=== PATIENT | male | born 1995 | race Caucasian/White ===

== ENCOUNTER → 2017-09-24 | Day surgery (SDC) | payer BC ==
[2017-09-22 12:47] VITALS: Ht 175.3 cm; Wt 79.5 kg
[~2017-09-24] VITALS: Ht 175.3 cm; Wt 79.5 kg
[~2017-09-24] MED LIST: ALBU18002 INH; ALPR-411 PO; ESCI10TA17 PO; LIDOCAINE HCL 2% 2 ML VIAL (20MG/ML) ONE; PANT40TA PO; PROPOFOL IV EMULSION 10 MG/ML 20 ML VIAL IV ONE; SODIUM CHLORIDE 0.9% 500ML 500 ML IV ONE
[2017-09-24 10:27] VITALS: TEMP 36.5
--- NOTE | 2017-09-24 11:38 | Endo History and Physical ---
History & Physical Date of Service: Sep 24, 2017. Chief Complaint: HEARTBURN Referring Physician: Case History of Present Illness 22 yo CM who presents for EGD secondary to Heartburn. Past Surgical History Hx Cardiac Surgery: No Hx Internal Defibrillator: No Hx Pacemaker: No Hx Abdominal Surgery: No Hx of Implantable Prosthesis: No Hx Post-Op Nausea and Vomiting: No Hx Cancer Surgery: No Hx Thoracic Surgery: No Hx Orthopedic: No Hx Urinary Tract Surgery: No Family History None Social History Smoking Status: Never Smoker Hx Substance Use: No ("NOT CURRENTLY") Hx Alcohol Use: Yes (OCCASIONALLY) Allergies Coded Allergies: NO KNOWN DRUG ALLERGIES (Verified Allergy, Unknown, ., 09/22/17) Current Medications Reported Home Medications Medications Dose Route/Sig Max Daily Dose Days Date Category Proair Respiclick (Albuterol Sulfate) 108 Mcg/Act Aer 2 Puff INH QID PRN 09/22/17 Reported Protonix (Pantoprazole Sodium) 40 Mg Tab 40 Mg PO QAM 09/22/17 Reported Xanax (Alprazolam) 0.5 Mg Tab 0.5 Mg PO Q6H PRN 09/22/17 Reported Lexapro (Escitalopram Oxalate) 10 Mg Tab 10 Mg PO QAM 09/22/17 Reported Vital Signs Weight (Kilograms): 79.55 Height (Feet): 5 Height (Inches): 9 Date Time Temp Pulse Resp B/P (MAP) Pulse Ox O2 Delivery O2 Flow Rate FiO2 09/24/17 10:27 36.5 57 18 156/84 (108) 98 Room Air Physical Exam General Appearance: WD/WN, no apparent distress Respiratory/Chest: Auscultation: breath sounds normal Cardiovascular: Heart Auscultation: RRR Abdomen: Bowel Sounds: normal Inspection & Palpation: soft, non-distended, no tenderness, guarding & rebound Assessment and Plan Assessment: 22 yo CM who presents for EGD secondary to Heartburn. Plan: Proceed with EGD
--- NOTE | 2017-09-24 12:01 | Discharge Instructions ---
Endoscopy Patient Instructions Date / Procedure(s) Performed Sep 24, 2017. EGD Allergy Information Coded Allergies: NO KNOWN DRUG ALLERGIES (Verified Allergy, Unknown, ., 09/22/17) Discharge Date / Findings Sep 24, 2017. Gastritis s/p biopsies Medication Instructions OK to resume all medications today as prescribed Reported Home Medications Medications Dose Route/Sig Max Daily Dose Days Date Category Proair Respiclick (Albuterol Sulfate) 108 Mcg/Act Aer 2 Puff INH QID PRN 09/22/17 Reported Protonix (Pantoprazole Sodium) 40 Mg Tab 40 Mg PO QAM 09/22/17 Reported Xanax (Alprazolam) 0.5 Mg Tab 0.5 Mg PO Q6H PRN 09/22/17 Reported Lexapro (Escitalopram Oxalate) 10 Mg Tab 10 Mg PO QAM 09/22/17 Reported Provider Instructions Activity Restrictions - No exercising or heavy lifting for 24 hours. - Do not drink alcohol the day of the procedure. - Do not drive a car or operate machinery until the day after the procedure. - Do not make any important decisions or sign important papers in 24 hours after the procedure. Following Day: - Return to full activity which may include returning to work/school. Diet Start your diet with liquids and light foods (jello, soup, juice, toast). Then eat your usual diet if not nauseated. Treatment For Common After Affects For mild abdominal pain, bloating, or excessive gas: - Rest - Eat lightly - Lie on right side Follow-Up Information Follow-up with as scheduled Anesthesia Information What You Should Know You have had a procedure that required some medicine to reduce anxiety and discomfort. This treatment is called moderate sedation. After receiving the treatment, you may be sleepy, but you will be able to breathe on your own. The effects of the treatment may last for several hours. Follow these instructions along with Activity/Diet recommendations noted above: * Do NOT do anything where dizziness or clumsiness would be dangerous. * Rest quietly at home today, then you can be up and about tomorrow. * Have a responsible person stay with you the rest of today. * You may have had an I.V. today. If so, you may take the dressing off later today. Recommendations Call your doctor if: * Trouble breathing * Continuous vomiting for more than 24 hours * Temperature above 101 degrees * Severe abdominal pain or bloating * Pain not relieved by pain medicine ordered * There is increased drainage or redness from any incision * A large amount of rectal bleeding greater than 2-3 tablespoons. (If you had a polyp/s removed or have hemorrhoids, a small amount of blood - from the rectum is to be expected.) * You have any unanswered questions or concerns. IN THE EVENT OF A SERIOUS EMERGENCY, GO TO THE NEAREST EMERGENCY ROOM Your discharge instructions were prepared by provider Ramakrishna Anna. Patient Instructions Signature Page Connor Wright Patient (or Guardian) Signature/Date: I have read and understand the instructions given to me by my caregivers. Caregiver/RN/Doctor Signature/Date: The above-named patient and/or guardian has received patient instructions on this date. + Original Patient Signature Page (only) stays with chart. Please make copy for patient.
--- NOTE | 2017-09-24 12:04 | GI REPORT ---
Procedure Date: 09/24/2017 11:29 AM Procedure: Upper GI endoscopy Indications: Heartburn Medicines: Monitored Anesthesia Care Complications: No immediate complications. Estimated Blood Loss: Estimated blood loss: none. Procedure: Pre-Anesthesia Assessment: - Prior to the procedure, a History and Physical was performed, and patient medications and allergies were reviewed. The patient's tolerance of previous anesthesia was also reviewed. The risks and benefits of the procedure and the sedation options and risks were discussed with the patient. All questions were answered, and informed consent was obtained. Prior Anticoagulants: The patient has taken no previous anticoagulant or antiplatelet agents. ASA Grade Assessment: II - A patient with mild systemic disease. After reviewing the risks and benefits, the patient was deemed in satisfactory condition to undergo the procedure. After obtaining informed consent, the endoscope was passed under direct vision. Throughout the procedure, the patient's blood pressure, pulse, and oxygen saturations were monitored continuously. The scope was introduced through the mouth, and advanced to the second part of duodenum. The upper GI endoscopy was accomplished without difficulty. The patient tolerated the procedure well. Findings: The esophagus was normal. Localized mild inflammation was found in the gastric antrum. Biopsies were taken with a cold forceps for histology. The examined duodenum was normal. Impression: - Normal esophagus. - Gastritis. Biopsied. - Normal examined duodenum. Recommendation: - Resume previous diet. - Continue present medications. - Await pathology results. - Return to primary care physician as previously scheduled. Ramakrishna Anna DO 09/24/2017 12:03:35 PM This report has been signed electronically. Note Initiated On: 09/24/2017 11:29 AM I attest to the content of the Intraoperative Record and orders documented therein, exceptions below
[2017-09-24 12:24] VITALS: BP 135/90; PULSE 49; O2SAT 99
--- NOTE | 2017-09-24 13:26 | Anesthesiology Progress Note ---
Anesthesia Post Op Note Date & Time Sep 24, 2017 at 13:25 Vital Signs Pain Intensity: 0 Vital Signs Past 12 Hours Date Time Temp Pulse Resp B/P (MAP) Pulse Ox O2 Delivery O2 Flow Rate FiO2 09/24/17 12:24 49 18 135/90 (105) 99 Room Air 09/24/17 12:09 60 18 134/79 (97) 97 Room Air 09/24/17 11:54 51 16 145/97 (113) 98 Room Air 09/24/17 10:27 36.5 57 18 156/84 (108) 98 Room Air Notes Mental Status: alert / awake / arousable, participated in evaluation Pt Amnestic to Procedure: Yes Nausea / Vomiting: adequately controlled Pain: adequately controlled Airway Patency, RR, SpO2: stable & adequate BP & HR: stable & adequate Hydration State: stable & adequate Anesthetic Complications: no major complications apparent
== END | disposition home or self-care (01) ==
LOC: C.GI 10:06
PROVIDERS: ATTEND Internal Medicine
DX: K29.50 Unspecified chronic gastritis without bleeding (principal); K21.9 Gastro-esophageal reflux disease without esophagitis; Z79.899 Other long term (current) drug therapy

== ENCOUNTER 2017-10-14 22:00 | Emergency (ER) | payer BC ==
[~2017-10-14] VITALS: Ht 175.3 cm; Wt 82.3 kg
[~2017-10-14 22:00] MED LIST changes: -LIDOCAINE HCL 2% 2 ML VIAL (20MG/ML) ONE; -PROPOFOL IV EMULSION 10 MG/ML 20 ML VIAL IV ONE; -SODIUM CHLORIDE 0.9% 500ML 500 ML IV ONE
[2017-10-14 22:03] VITALS: TEMP 36.2; Ht 175.3 cm; Wt 82.3 kg
[2017-10-14] MEDS ORDERED: LORAZEPAM 2 MG/ML 1 ML VIAL IV STA (22:16)
[2017-10-14 22:31] LABS: BASO % 0.1 %; BASO ABS # 0.01 K/uL (0-0.2); COMPLETE YES; EOS % 1.8 %; HEMATOCRIT 42.7 % (42-52); IG% 0.1 %; LYMPH % 39.6 %; LYMPH ABS # 2.88 K/uL (1.2-3.4); MEAN CELL VOLUME 87.5 fL (80-100); MEAN CORPUSCULAR HEMOGLOBIN 30.9 pg (25-34); MEAN CORPUSCULAR HGB CONC 35.4 g/dl (32-36); MEAN PLATELET VOLUME 9.9 fL (7.4-10.4); MONO % 6.2 %; NEUT % 52.2 %; PLATELET COUNT 157 K/uL (130-400); RED BLOOD COUNT 4.88 M/uL (4.7-6.1); WHITE BLOOD COUNT 7.28 K/uL (4.8-10.8)
--- NOTE | 2017-10-14 22:51 | DIAGNOSTIC IMAGING REPORT ---
CHEST ONE VIEW PORTABLE HISTORY: Atypical CHEST PAIN COMPARISON: None. FINDINGS: The lungs are clear. Cardiac silhouette is normal in size. No pleural effusions. No pneumothorax. IMPRESSION: No acute process. Electronically signed by: Jeremy Joiner M.D. 10/14/2017 10:50 PM Dictated Date/Time: 10/14/2017 10:48 PM
[2017-10-14] MEDS ORDERED: OPTIRAY 320 IV PRN (23:00)
[2017-10-14 23:02] LABS: ALKALINE PHOSPHATASE 82 U/L (45-117); ALT/SGPT 34 U/L (12-78); AST/SGOT 27 U/L (15-37); BLOOD UREA NITROGEN 23 mg/dl (7-18); BUN/CREATININE RATIO 16.3 (10-20); CALCIUM 9.1 mg/dl (8.5-10.1); CARBON DIOXIDE 27 mmol/L (21-32); CHLORIDE 103 mmol/L (98-107); CREATININE 1.39 mg/dl (0.60-1.40); GLUCOSE 96 mg/dl (70-99); POTASSIUM 3.5 mmol/L (3.5-5.1); SODIUM 140 mmol/L (136-145)
--- NOTE | 2017-10-14 23:31 | EMERGENCY ROOM VISIT NOTE ---
History First contact with patient: 22:06 Chief Complaint: CHEST PAIN Stated Complaint: CHEST AND ARM PAIN - COLD SWEATS Nursing Triage Summary: Chest pain starting an hour ago while watching TV. Was at the gym an hour prior to that. History of Present Illness The patient is a 22 year old male who presents to the Emergency Room with complaints of intermittent chest pain for the past 2 years that increased tonight about an hour ago. Patient states he felt somewhat short of breath and sweaty with this. Pain has almost resolved. Currently 2 out of 10. Nothing makes it better or worse. Does not radiate. Patient had echo and EKG 4 months ago to home that was normal per patient at the [facility]. He had an EGD last month that was also showing only mild gastritis by Dr. romano. Patient denies family history of heart disease or blood clots. No recent travel. He does not smoke. Patient denies IV drug abuse, back pain, fever, chills, cough, congestion, injury to the area, abdominal pain, leg pain or swelling, palpitations, excessive alcohol use, supplement use. No excessive caffeine use. Patient denies prior history of anxiety or depression. Patient states the family care doctor tried him on Lexapro but he stopped this. Review of Systems See HPI for pertinent positives & negatives. A total of 10 systems reviewed and were otherwise negative. Past Medical/Surgical History None Social History Smoking Status: Never Smoker Smokeless Tobacco Use: No Alcohol Use: occasionally Drug Use: none Occupation Status: [employer] student Current/Historical Medications Scheduled Pantoprazole (Protonix), 40 MG PO QAM Scheduled PRN Albuterol Sulfate (Proair Respiclick), 2 PUFF INH QID PRN for Shortness of Breath Alprazolam (Xanax), 0.5 MG PO Q6H PRN for Anxiety Physical Exam Vital Signs Date Time Temp Pulse Resp B/P (MAP) Pulse Ox O2 Delivery O2 Flow Rate FiO2 10/14/17 23:19 61 16 143/79 97 Room Air 10/14/17 22:45 57 14 98 10/14/17 22:30 67 21 149/83 97 Room Air 10/14/17 22:25 57 10/14/17 22:20 Room Air 10/14/17 22:20 Room Air 10/14/17 22:18 157/92 10/14/17 22:03 36.2 87 20 184/110 100 Physical Exam VITALS: Vitals are noted on the nurse's note and reviewed by myself. Vital signs hypertensive GENERAL: Pleasant anxious-appearing male, in no acute distress, nondiaphoretic, well-developed well-nourished. SKIN: The skin was without rashes, erythema, edema, or bruising. There is no tenting of the skin. Capillary reflex less than 2 seconds. HEAD: Normocephalic atraumatic. EARS: External auditory canals clear, tympanic membranes pearly allen without erythema or effusion bilaterally. EYES: Pupils equal round and reactive to light and accommodation. Conjunctivae without injection, sclerae without icterus. Extraocular movements intact. NOSE: Patent, turbinates without inflammation or discharge. MOUTH: Mucous membranes moist. Pharynx without erythema or exudate. Uvula midline. Airway patent. Tongue does not deviate. NECK: Supple without nuchal rigidity. No lymphadenopathy. No thyromegaly. Cervical spine is nontender. No JVD. HEART: Regular rate and rhythm without murmurs gallops or rubs. Chest nontender to palpation LUNGS: Clear to auscultation bilaterally without wheezes, rales or rhonchi. No dullness to percussion. No retractions or accessory muscle use. ABDOMEN: Positive bowel sounds x 4. Normal tympanic percussion. Soft, nontender, without masses or organomegaly. Baxter sign negative. No guarding or rebound tenderness. MUSCULOSKELETAL: No muscle atrophy, erythema, or edema noted. NEURO: Patient was alert and oriented to person place and time. Normal sensation to light and sharp touch. No focal neurological deficits. Medical Decision & Procedures Laboratory Results 10/14/17 22:16 Red Blood Count 4.88, Mean Corpuscular Volume 87.5, Mean Corpuscular Hemoglobin 30.9, Mean Corpuscular Hemoglobin Concent 35.4, Mean Platelet Volume 9.9, Neutrophils (%) (Auto) 52.2, Lymphocytes (%) (Auto) 39.6, Monocytes (%) (Auto) 6.2, Eosinophils (%) (Auto) 1.8, Basophils (%) (Auto) 0.1, Neutrophils # (Auto) 3.80, Lymphocytes # (Auto) 2.88, Monocytes # (Auto) 0.45, Eosinophils # (Auto) 0.13, Basophils # (Auto) 0.01 10/14/17 22:16 Test 10/14/17 22:16 10/14/17 22:17 White Blood Count 7.28 K/uL (4.8-10.8) Red Blood Count 4.88 M/uL (4.7-6.1) Hemoglobin 15.1 g/dL (14.0-18.0) Hematocrit 42.7 % (42-52) Mean Corpuscular Volume 87.5 fL (80-100) Mean Corpuscular Hemoglobin 30.9 pg (25-34) Mean Corpuscular Hemoglobin Concent 35.4 g/dl (32-36) Platelet Count 157 K/uL (130-400) Mean Platelet Volume 9.9 fL (7.4-10.4) Neutrophils (%) (Auto) 52.2 % Lymphocytes (%) (Auto) 39.6 % Monocytes (%) (Auto) 6.2 % Eosinophils (%) (Auto) 1.8 % Basophils (%) (Auto) 0.1 % Neutrophils # (Auto) 3.80 K/uL (1.4-6.5) Lymphocytes # (Auto) 2.88 K/uL (1.2-3.4) Monocytes # (Auto) 0.45 K/uL (0.11-0.59) Eosinophils # (Auto) 0.13 K/uL (0-0.5) Basophils # (Auto) 0.01 K/uL (0-0.2) RDW Standard Deviation 39.0 fL (36.4-46.3) RDW Coefficient of Variation 12.2 % (11.5-14.5) Immature Granulocyte % (Auto) 0.1 % Immature Granulocyte # (Auto) 0.01 K/uL (0.00-0.02) Anion Gap 10.0 mmol/L (3-11) Est Creatinine Clear Calc Drug Dose 84.1 ml/min Estimated GFR () 83.4 Estimated GFR (Non- 71.9 BUN/Creatinine Ratio 16.3 (10-20) Calcium Level 9.1 mg/dl (8.5-10.1) Total Bilirubin 0.4 mg/dl (0.2-1) Direct Bilirubin mg/dl (0-0.2) Aspartate Amino Transf (AST/SGOT) 27 U/L (15-37) Alanine Aminotransferase (ALT/SGPT) 34 U/L (12-78) Alkaline Phosphatase 82 U/L (45-117) Total Protein 8.3 gm/dl (6.4-8.2) Albumin 4.5 gm/dl (3.4-5.0) Lipase 251 U/L (73-393) Chemistry Specimen Hemolysis Bedside D-Dimer > 450 ng/mlFEU (0-450) Bedside Troponin I 0.030 ng/ml (0-0.045) Medications Administered Medications (Trade) Dose Ordered Sig/[place] Route Start Time Stop Time Status Last Admin Dose Admin Lorazepam (Ativan Inj) 1 mg NOW STAT IV 10/14/17 22:16 10/14/17 22:17 DC 10/14/17 22:43 1 MG ED Course Prior records/ancillary studies reviewed. Triage Nursing notes reviewed. The patient's history was concerning for chest pain. Differential diagnosis: Etiologies such as cardiac ischemia, aortic dissection, pulmonary embolism, pneumonia, pneumothorax, musculoskeletal, infections, pericarditis, myocarditis , esophageal rupture, gastrointestinal, as well as others were entertained. Physical examination: As above. ER treatment provided: Ativan On reassessment the patient felt better. Diagnostic interpretation by me: The electrocardiogram was negative for pathologic change. Normal sinus, normal intervals, no acute ST-T wave changes, rate of 82. Impression normal sinus rhythm interpreted by myself The labs revealed elevated d-dimer. Negative troponin Imaging studies: Chest x-ray with no acute consolidation, pneumothorax or free air per my interpretation CTA negative for PE per radiology Exam and history seem consistent with noncardiac chest pain. Patient had a echo a few months ago that was unremarkable per patient back,. He had EGD that showed mild gastritis last month. Patient had a negative troponin. Normal EKG. He felt better after the Ativan. He was asked to rest, decrease stress and to follow-up with health services in a few days or here in the ER sooner for chest pain, difficulty breathing, worsening signs or symptoms or as needed. By the evaluation outlined above emergent etiologies such as cardiac ischemia, aortic dissection, pulmonary embolism, pneumonia, pneumothorax, infections, pericarditis, myocarditis, gastrointestinal, as well as others were deemed relatively unlikely. The pt informed about the findings as listed above. All questions were answered and pleased with the treatment. Return instructions were outlined and the patient was discharged in stable condition. Referral: The patient was referred back to health services / primary care physician for follow-up in 2 to 3 days for a recheck of the current condition. Case reviewed with my attending Medical Decision As above Medication Reconcilliation Current Medication List: was personally reviewed by me Blood Pressure Screening Patient's blood pressure: Elevated blood pressure Blood pressure disposition: Elevated BP felt to be situational Impression Primary Impression: Non-cardiac chest pain Departure Information Dispostion Home / Self-Care Condition GOOD Referrals No Doctor, Assigned (PCP) Patient Instructions My [facility] Additional Instructions DO NOT drive, drink alcohol, operate machinery, or perform dangerous activities today. You were given medications in the ER that can affect your ability to safely function or operate a vehicle. Ibuprofen(Motrin, Advil) may be used for fever or pain. Use 600mg every six hours as needed. Take with food. Avoid using more than 2400mg in a 24 hour period. Do not use 2400mg per day for more than three consecutive days without physician direction. Prolonged inappropriate use can lead to stomach upset or ulcers. (AND/OR) Acetaminophen(Tylenol) may be used for fever or pain. Use 1000mg every six hours as needed. Avoid using more than 3000mg in a 24 hour period. Rest and drink plenty of fluids as tolerated. Continue current medications. Avoid strenuous activities and anything that worsens your pain. Resume normal activities once your symptoms resolve. Return to the ER immediately for worsening or persistent chest pain, abdominal pain, vomiting, fevers, chest pains, difficulty breathing, worsening of your condition, or as needed. Follow up with your primary physician./Health services in 2-3 days for a recheck of your current condition.
[2017-10-14 23:41] VITALS: BP 140/80; PULSE 62; O2SAT 97
--- NOTE | 2017-10-15 06:52 | DIAGNOSTIC IMAGING REPORT ---
(CHEST FOR PE) ANGIO WITH CT DOSE: 328.27 mGy.cm HISTORY: Chest pain dyspnea TECHNIQUE: Multiaxial CT images of the chest were performed following the intravenous administration of contrast to evaluate the pulmonary arteries. Maximal intensity projection images were also obtained. A dose lowering technique was utilized adhering to the principles of ALARA. COMPARISON STUDY: None. FINDINGS: There is a normal caliber thoracic aorta with no evidence for dissection. There is no evidence for pulmonary embolus. No pleural effusions. No pneumothorax. The liver and spleen are unremarkable. No mediastinal or hilar lymphadenopathy. The central airways are patent. The lungs are clear. IMPRESSION: No evidence for pulmonary embolus. Lungs are clear. The above report was generated using voice recognition software. It may contain grammatical, syntax or spelling errors. Electronically signed by: Odilon Card M.D. 10/15/2017 6:51 AM Dictated Date/Time: 10/15/2017 6:50 AM
== END 2017-10-14 23:59 | disposition home or self-care (01) ==
LOC: C.EDB 22:01
DX: R07.89 Other chest pain (principal)

== ENCOUNTER 2017-11-12 10:33 | Emergency (ER) | payer BC ==
[~2017-11-12] VITALS: Ht 175.3 cm; Wt 78.6 kg
[~2017-11-12 10:33] MED LIST changes: -ESCI10TA17 PO
[2017-11-12 10:35] VITALS: TEMP 36.4; Ht 175.3 cm; Wt 78.6 kg
[2017-11-12] MEDS ORDERED: PANT40TA PO (11:02)
[2017-11-12] MEDS ORDERED: CRFL PO (11:02)
[2017-11-12] MEDS ORDERED: ALPR-411 PO (11:02)
[2017-11-12] MEDS ORDERED: ESCI10TA17 PO (11:02)
[2017-11-12] MEDS ORDERED: LIDOCAINE HCL 2% VISC SOLN 20 ML UDC PO STA (11:52)
[2017-11-12] MEDS ORDERED: LORAZEPAM 1 MG TAB SL STA (11:52)
[2017-11-12] MEDS ORDERED: ALUMINUM/MAGNESIUM SUSP 30 ML UDC PO STA (11:52)
[2017-11-12 12:39] VITALS: BP 144/84; PULSE 72; O2SAT 100
--- NOTE | 2017-11-12 17:18 | EMERGENCY ROOM VISIT NOTE ---
History Report prepared by Shadia: Faith Berry Under the Supervision of: Dr. Luther Cr M.D. First contact with patient: 11:45 Chief Complaint: ANXIETY Stated Complaint: PANIC, CHEST PAIN History of Present Illness The patient is a 22 year old male who presents to the Emergency Room with complaints of persistent anxiety that began this morning. The patient states that this morning when he woke up, he had a panic attack. The patient states that during his episode he had chest tightness and was out of breath. He is no longer short of breath, but is not back to his normal state. He still complains of some chest tightness. This chest tightness is identical to his previous panic attacks. He has had a workup by facility sales and admin for these symptoms. He notes that he takes Lexapro and Xanax for his anxiety. The patient denies any fever or recent illness. He notes that he is having some abdominal pain, secondary to his gastritis. The patient denies any suicidal thoughts. He does state that he did not take any Xanax this morning. He stated that he felt like he had to get out of the house. Source of History: patient Onset: this morning Position: other (global) Symptom Intensity: severe Quality: other (anxiety) Timing: other (persistent) Associated Symptoms: + abdominal pain (gastritis), No fevers Review of Systems See HPI for pertinent positives & negatives. A total of 10 systems reviewed and were otherwise negative. Past Medical & Surgical Medical Problems: (1) Anxiety (2) Gastritis Family History Anxiety disorder Social History Smoking Status: Never Smoker Alcohol Use: occasionally Drug Use: none Occupation Status: [employer] Current/Historical Medications Scheduled Escitalopram (Lexapro), 10 MG PO DAILY Pantoprazole (Protonix), 40 MG PO DAILY Sucralfate (Carafate), 10 ML PO QID Scheduled PRN Alprazolam (Xanax), 0.5 MG PO Q6H PRN for Anxiety Allergies Coded Allergies: NO KNOWN DRUG ALLERGIES (Verified Allergy, Unknown, ., 11/12/17) Physical Exam Vital Signs Date Time Temp Pulse Resp B/P (MAP) Pulse Ox O2 Delivery O2 Flow Rate FiO2 11/12/17 12:39 72 144/84 100 11/12/17 10:35 36.4 98 28 153/80 100 Room Air Physical Exam Constitutional: Vital signs reviewed. Eyes: Pupils are equal round reactive to light. Conjunctiva are noninjected. ENT: Pharynx is clear without erythema or exudate. Mucous membranes are moist. Neck supple without meningeal signs. Respiratory: Clear to auscultation bilaterally. Breath sounds are equal bilaterally. Cardiovascular: Regular rate and rhythm. No rubs or gallops. GI: Soft, nondistended and nontender. Bowel sounds are present. Musculoskeletal: No peripheral edema. Integumentary: No cyanosis. Neurological: The patient is awake and alert. No focal deficits. Psychiatric: Anxious. Medical Decision & Procedures Medications Administered Medications (Trade) Dose Ordered Sig/[place] Route Start Time Stop Time Status Last Admin Dose Admin Lidocaine HCl (Viscous Lidocaine 2% Soln) 10 ml NOW STAT PO 11/12/17 11:52 11/12/17 11:54 DC 11/12/17 12:16 10 ML Al Hydroxide/Mg Hydroxide (Maalox Susp) 30 ml NOW STAT PO 11/12/17 11:52 11/12/17 11:54 DC 11/12/17 12:15 30 ML Lorazepam (Ativan Tab) 1 mg NOW STAT SL 11/12/17 11:52 11/12/17 11:54 DC 11/12/17 12:15 1 MG ECG Indication: chest pain Rate (beats per minute): 62 Rhythm: normal sinus Findings: no acute ischemic change, no ectopy ED Course 1151: The patient was evaluated in room A5. A complete history and physical exam was performed. 1152: Ordered Ativan Tab 1mg SL, Maalox Susp 30ml PO, and Lidocaine HCL 10ml PO. 1220: I reevaluated the patient, his epigastric pain was better and he felt less anxious. 1240: Upon reevaluation, the patient appeared to have improvement of his symptoms. I discussed tonight's findings with him. He verbalized agreement of the treatment plan. The patient was discharged home. Medical Decision This is a 22-year-old male who presents for mental health evaluation. I did perform a limited focused review of portions of the patient's old chart on the electronic medical record. The patient was seen in August for chest pain which was treated with Ativan. He had an EGD which showed gastritis. He had a normal echocardiogram 5 months ago in [place]. I did evaluate the patient as noted above. The patient is presenting with a panic attack which started this morning. He usually gets chest pain with these panic attacks. He has had a cardiac workup for this chest pain in the past. He states the symptoms are typical for a panic attack. He is feeling better now but still has some chest tightness and anxiety. He also complains of some epigastric pain which she attributes to his gastritis. I did treat him with a GI cocktail. He was also given Ativan sublingually. I did order and personally review the patient's 12-lead EKG as described above. His 12-lead EKG does not demonstrate any signs of acute ischemia. I did reassess the patient. He is feeling much better. He no longer has any chest pain. He is no longer anxious. He was referred to [facility] and discharged in good condition. Medication Reconcilliation Current Medication List: was personally reviewed by me Blood Pressure Screening Patient's blood pressure: Elevated blood pressure Blood pressure disposition: Did not require urgent referral Impression Primary Impression: Anxiety Additional Impression: Gastritis Scribe Attestation The scribe's documentation has been prepared under my direct and personally reviewed by me in its entirety. I confirm that the note above accurately reflects all work, treatment, procedures, and medical decision making performed by me. Departure Information Dispostion Home / Self-Care Referrals No Doctor, Assigned (PCP) Forms HOME CARE DOCUMENTATION FORM, IMPORTANT VISIT INFORMATION Patient Instructions [facility] Additional Instructions You have been examined and treated today on an emergency basis only. This is not a substitute for, or an effort to provide, complete comprehensive medical care. It is impossible to recognize and treat all injuries or illnesses in a single emergency department visit. It is therefore important that you follow up closely with your physician and [facility]. Call as soon as possible for an appointment. Return for worsening symptoms or if you develop fever, vomiting, difficulty breathing, thoughts of hurting yourself or others or any other concerning symptoms. Problem Qualifiers Additional Impression: Gastritis Gastritis type: unspecified gastritis Chronicity: unspecified Gastritis bleeding: without bleeding Qualified Codes: K29.70 - Gastritis, unspecified, without bleeding
== END 2017-11-12 12:40 | disposition home or self-care (01) ==
LOC: C.EDB 10:35 → C.EDA 12:40
DX: F41.9 Anxiety disorder, unspecified (principal); K29.70 Gastritis, unspecified, without bleeding; Z79.899 Other long term (current) drug therapy